=== PATIENT | female | born 1940 | race Caucasian/White ===

== ENCOUNTER 2016-12-02 14:17 | Outpatient (CLI) | payer OTHER, MEDICARE ==
--- NOTE | 2016-12-02 15:42 | DIAGNOSTIC IMAGING REPORT ---
PROCEDURE: MG UNILATERAL DIAG-RT W/CAD INDICATION: 6-month follow-up right breast nodule. TECHNIQUE: CC and MLO implant displacement digital views of the right breast. In addition, spot compression CC and MLO views were obtained of the caudal right breast (region of clinical concern). Finally, high-resolution right breast ultrasound was performed (18 mHz). COMPARISON: Comparison is made to right mammogram right breast ultrasound 06/11/2016. FINDINGS: MAMMOGRAM: Computer-aided detection applied. Mildly dense parenchymal pattern. There has been no change in a 6 mm parenchymal density in the lower inner right breast (0530 position, middle third). BREAST ULTRASOUND: Normal parenchyma. No evidence of mass or cyst. Right breast implant noted. IMPRESSION: 1. There is a stable 6 mm density in the lower right breast without ultrasound abnormality. Findings are compatible with normal tissue or postoperative scarring. 2. Resume routine screening schedule (June 2017). 3. Findings discussed with the patient. RESULT CODE: 2- Benign finding(s). A. A negative report should not delay biopsy if a dominant or clinically suspicious mass is present. 10-15% of cancers are not identified by x-ray. B. A negative report may reinforce clinical impression. C. Adenosis and dense breasts may obscure an underlying neoplasm. D. False positive reports average 6-10%. E.. A yearly screening mammogram is recommended. A reminder letter will be scheduled.
== END 2016-12-02 23:00 ==
LOC: MAM SRH 14:17
DX: R92.2 Inconclusive mammogram (principal)